=== PATIENT | male | born 1975 | race Caucasian/White ===

== ENCOUNTER → 2019-02-11 | Outpatient (CLI) | payer BC, OTHER ==
--- NOTE | 2019-02-11 11:23 | Diagnostic Imaging Report ---
PROCEDURE: CT abdomen and pelvis without contrast. TECHNIQUE: Multiple contiguous axial images were obtained through the abdomen and pelvis without the use of intravenous contrast. Auto Exposure Controls were utilized during the CT exam to meet ALARA standards for radiation dose reduction. INDICATION: Hematuria. COMPARISON: No prior studies are available for comparison. FINDINGS: Imaging through the lung bases shows a tiny nonspecific 6 mm nodule in the left lower lobe, image #1. There are two adjacent approximately 2-3 mm nodules. No infiltrates are seen. No discrete liver mass is identified. The gallbladder is unremarkable. No biliary duct dilatation is seen. The pancreas and spleen are unremarkable. No adrenal mass is detected. Right kidney is atrophic. Left kidney demonstrates compensatory enlargement. No calculi or hydronephrosis is detected. The aorta is non-aneurysmal. Small and large bowel loops are normal in caliber. Appendix is surgically absent. There is no ascites. Bladder is unremarkable. Prostate is normal in size. The bony structures are non-acute. IMPRESSION: 1. Subcentimeter left lower lobe pulmonary nodules, indeterminate. Followup in 6-12 months could be performed to confirm stability. 2. Atrophic right kidney. No urinary tract calculi or obstruction is identified. No acute feature in the abdomen or pelvis is seen. Dictated by: Dictated on workstation # [id number]
== END ==
LOC: RAD 10:23
PROVIDERS: ATTEND Urology
DX: N26.1 Atrophy of kidney (terminal) (principal); R91.8 Other nonspecific abnormal finding of lung field; R31.0 Gross hematuria; Z90.49 Acquired absence of other specified parts of digestive tract
CPT/HCPCS: 74176

== ENCOUNTER → 2019-05-19 | Outpatient (CLI) | payer BC, MEDICARE, OTHER ==
[~2019-05-19] MED LIST: HOLD METFORMIN - RECEIVED CONTRAST 20 ML VIAL IV SCH; IOHEXOL 350 MG/ML 100 ML (OMNIPAQUE 350) VIAL IV ONE; NS 100 ML (IVPB) BAG IV ONE
--- NOTE | 2019-05-19 10:58 | Diagnostic Imaging Report ---
PROCEDURE: CT chest with contrast only. TECHNIQUE: Multiple contiguous axial images were obtained through the chest after administration of intravenous contrast. Auto Exposure Controls were utilized during the CT exam to meet ALARA standards for radiation dose reduction. INDICATION: Lung nodule. COMPARISON: Correlation is made with CT abdomen and pelvis study from 02/11/2019. FINDINGS: No axillary lymphadenopathy is identified. There are non-pathologically enlarged lymph nodes in the mediastinum. Kathryn are unremarkable. No pericardial or pleural fluid is identified. Central airways are patent. Tiny nodules in the left lower lobe near the major fissure seen previously are stable. Largest nodule measures approximately 5 mm. No new mass is seen. Upper abdomen demonstrates right renal atrophy. IMPRESSION: Stable left lower lobe nodules when compared with exam three months earlier. Followup at 6 and 12 months is recommended to confirm stability. Dictated by: Dictated on workstation # [id number]
== END ==
LOC: RAD 09:15
PROVIDERS: ATTEND Urology
DX: R91.8 Other nonspecific abnormal finding of lung field (principal)
CPT/HCPCS: 71260

== ENCOUNTER → 2019-11-16 | Outpatient (CLI) | payer BC, OTHER ==
[~2019-11-16] MED LIST changes: +CATHETER FLUSH 10 ML SYR IV PRN
--- NOTE | 2019-11-16 13:11 | Diagnostic Imaging Report ---
PROCEDURE: CT chest with contrast only. TECHNIQUE: Multiple contiguous axial images were obtained through the chest after administration of intravenous contrast. Auto Exposure Controls were utilized during the CT exam to meet ALARA standards for radiation dose reduction. INDICATION: Follow-up left lower lobe nodule. Chest pain at times. COMPARISON: CT chest on 05/19/2019. FINDINGS: The heart size is within normal limits. No pericardial effusion is present. Stable appearance of mildly prominent mediastinal lymph nodes. No pathologically enlarged lymphadenopathy is seen in the chest. Stable size of the nodules in the left lower lobe adjacent to the fissure, with the largest measuring 0.5 cm. No new suspicious pulmonary nodules. There are no focal areas of consolidation. No central endobronchial obstructing lesions are identified. There is no pleural effusion or pneumothorax. The osseous structures demonstrate no acute abnormalities. Limited views of the upper abdominal structures demonstrate no acute abnormalities. Atrophy of the right kidney is again noted. Both adrenal glands are unremarkable. IMPRESSION: 1. Stable subcentimeter pulmonary nodules in the left lower lobe, the largest measuring 0.5 cm. No new suspicious pulmonary nodules. Given the stability of the nodule follow-up in [address] is recommended. Dictated by: Dictated on workstation # [id number]
== END ==
LOC: RAD 11:39
PROVIDERS: ATTEND Urology
DX: R91.8 Other nonspecific abnormal finding of lung field (principal)
CPT/HCPCS: 71260

== ENCOUNTER → 2019-12-15 | Outpatient (CLI) | payer BC | LOC: CARD 09:47 | PROVIDERS: ATTEND Internal Medicine Cardiovascular Disease | DX: I11.9 Hypertensive heart disease without heart failure (principal); R07.9 Chest pain, unspecified; R06.02 Shortness of breath; E78.5 Hyperlipidemia, unspecified | CPT/HCPCS: 93306 ==

== ENCOUNTER → 2019-12-20 | Outpatient (CLI) | payer BC ==
[~2019-12-20] VITALS: Ht 174 cm; Wt 94.0 kg
[~2019-12-20] MED LIST changes: -HOLD METFORMIN - RECEIVED CONTRAST 20 ML VIAL IV SCH; -IOHEXOL 350 MG/ML 100 ML (OMNIPAQUE 350) VIAL IV ONE; -NS 100 ML (IVPB) BAG IV ONE
--- NOTE | 2019-12-20 17:35 | STRESS TEST ---
DATE OF SERVICE: 12/20/2019 RESTING AND POST EXERCISE TECHNETIUM-99M TETROFOSMIN SPECT CT IMAGING ORDERING PHYSICIAN: Dr. Mijares. PRIMARY PHYSICIAN: Dr. Mendoza. CLINICAL DIAGNOSIS: Chest discomfort. Baseline images were carried out after injection of 10.45 mCi of technetium-99m Tetrofosmin. Subsequently, exercise was carried out on treadmill. Neto protocol was employed. The patient completed 11 minutes and 30 seconds and attained 12.1 METS of workload. Heart rate response to exercise was normal. Blood pressure response to exercise was hypertensive. After the patient had attained more than 85% of maximum predicted heart rate, 31.7 mCi of technetium-99m Tetrofosmin were injected and the exercise was continued for another minute. Exercise was stopped on account of fatigue. No significant arrhythmia was seen. The patient did not report chest discomfort. Review of images at rest and following stress does not indicate any distinct perfusion defects consistent with significant myocardial ischemia or infarction. Gated images show normal global left ventricular systolic function with normal regional wall motion. Left ventricular ejection fraction is calculated to be 67%. CONCLUSIONS: 1. No evidence of significant myocardial ischemia or infarction on this study. 2. Normal regional wall motion. 3. Normal global left ventricular systolic function with a calculated ejection fraction of 67%. Job ID: [id number] DocumentID: [id number] Dictated Date: 12/20/2019 15:19:05 Dairy Inspector Date: 12/20/2019 17:35:18 Dictated By: LIBBY MIJARES MD, MA, FACP, FACC, MTDD
== END ==
LOC: CARD 07:39
PROVIDERS: ATTEND Internal Medicine Cardiovascular Disease
DX: R07.89 Other chest pain (principal); I10 Essential (primary) hypertension; R06.02 Shortness of breath; E78.5 Hyperlipidemia, unspecified
CPT/HCPCS: 78452; 93017

== ENCOUNTER 2020-05-15 08:00 | Day surgery (SDC) | payer BC ==
[2020-05-15] VITALS (9 sets, daily range): BP systolic 110–137; BP diastolic 70–95
[~2020-05-15] VITALS: Ht 175 cm; Wt 95.0 kg
[2020-05-15 07:41] LABS: HEMOGLOBIN 16.3 G/DL (13.3-17.7); MEAN PLATELET VOLUME 9.5 FL (7.4-10.4); WHITE BLOOD COUNT 7.4 10^3/uL (4.3-11.0)
[2020-05-15 07:53] LABS: INR 0.9 (0.8-1.4); PROTHROMBIN TIME PATIENT 12.5 SEC (12.2-14.7)
[~2020-05-15 08:00] MED LIST changes: +ASPI-1238 PO; +CARV25TA PO; -CATHETER FLUSH 10 ML SYR IV PRN; +HEParin (CATH LAB) 2,000 ML IV ONE; +LIDOCAINE 1% INJ 20 ML 20 ML VIAL ONE; +NITR0.4T39 SL; +NS IV 1000 ML 1,000 ML IV SCH; +NS IV 1000 ML 1,000 ML ONE; +OMEP40CA27 PO
[2020-05-15 08:02] LABS: ALANINE AMINOTRANSFERASE 30 U/L (0-55); ALBUMIN 4.2 GM/DL (3.2-4.5); ALKALINE PHOSPHATASE 80 U/L (40-136); BILIRUBIN,TOTAL 0.4 MG/DL (0.1-1.0); BUN/CREATININE RATIO 15; CALCIUM 8.8 MG/DL (8.5-10.1); CARBON DIOXIDE 23 MMOL/L (21-32); CHLORIDE 106 MMOL/L (98-107); CHOLESTEROL 199 MG/DL (< 200); GFR ESTIMATED > 60; GLUCOSE 101 MG/DL (70-105); HDL CHOLESTEROL 32 MG/DL (40-60); POTASSIUM 4.2 MMOL/L (3.6-5.0); SODIUM 139 MMOL/L (135-145); TOTAL PROTEIN 6.9 GM/DL (6.4-8.2); TRIGLYCERIDES 402 MG/DL (<150); VLDL CHOLESTEROL 80 MG/DL (5-40)
[2020-05-15] MEDS ORDERED: fentaNYL INJECTION 100 MCG/2 ML AMP ONE (08:29)
[2020-05-15] MEDS ORDERED: MIDAZOLAM 5 MG/5 ML (VERSED) VIAL ONE (08:29)
--- NOTE | 2020-05-15 09:10 | Cardiac Procedure Note-CS/ASA ---
Pre-Procedure Note Pre-Op Procedure Note H&P Reviewed The H&P was reviewed, patient examined and no changes noted. Date H&P Reviewed: May 15, 2020 Time H&P Reviewed: 08:45 Conscious Sedation Pre-Proced Time 08:45 ASA Score 3 For ASA 3 and 4: Consider anesthesia and medical clearance. Also, for patients with a history of failed moderate sedation consider anesthesia. Airway Lungs Heart ASA score ASA 1: a normal healthy patient ASA 2: a patient with a mild systemic disease (mid diabetes, controlled hypertension, obesity ASA 3: a patient with a severe systemic disease that limits activity (angina, COPD, prior Myocardial infarction) ASA 4: a patient with an incapacitating disease that is a constant threat to life (CHF, renal failure) ASA 5: a moribund patient not expected to survive 24 hrs. (ruptured aneurysm) ASA 6: a declared brain- patient whose organs are being harvested. For emergent operations, add the letter E after the classification Mallampati Classification Grade 2 Sedation Plan Analgesia, Amnesia, Plan communicated to team members, Discussed options with patient/fam, Discussed risks with patient/fam The patient is an appropriate candidate to undergo the planned procedure, sedation, and anesthesia. The patient immediately re-assessed prior to indication. LIBBY VOSS MD FACP FAC CCDS May 15, 2020 09:10
[2020-05-15] MEDS ORDERED: NS IV 1000 ML 1,000 ML IV SCH (09:13)
[2020-05-15] MEDS ORDERED: PATIENT MAY USE OWN MEDS, ALL PO SCH (09:15)
--- NOTE | 2020-05-15 09:15 | Discharge Inst-Cardiology ---
Discharge Inst-Cardiac Discharge Medications Continued Medications: Aspirin (Aspirin EC) 81 Mg Tablet.dr 81 MG PO DAILY, TAB Carvedilol (Carvedilol) 25 Mg Tablet 25 MG PO BID, TAB Omeprazole (Omeprazole) 40 Mg Capsule.dr 40 MG PO DAILY, CAP Discontinued Medications: Nitroglycerin (Nitroglycerin) 0.4 Mg Tab.subl 0.4 MG SL UD PRN for CHEST PAIN, TAB LIBBY VOSS MD FACP FAC CCDS May 15, 2020 09:15
--- NOTE | 2020-05-15 09:16 | Discharge Inst-Post CATH ---
Discharge Inst-CATH/EP Post Cardiac Cath/EP D/C Inst Follow Up/Plan F/u with Dr Mijares in 2 weeks <b>CARDIAC CATH/EP PROCEDURE DISCHARGE INSTRUCTIONS</b> ACTIVITY * Go Home directly and rest. * Limit activity of the leg (or wrist if it was used) for 7 days including aerobics, swimming, jogging, bicycling, etc. * Restrict stair-climbing for 7 days if possible, if not, climb up with your non-cath leg, then bring together on the same step. * Avoid lifting, pushing, pulling or excessive movement of the affected extremity for 7 days. * Customary sexual activity may be resumed after 2 days-use caution not to use a position that strains or causes pain to the affected extremity. * No driving for 24 hours. * NO SMOKING. * Avoid straining for bowel movements for 7 days. * Gentle walking on level ground is allowed. * Returning to work will depend on the type of procedure and the results. Your doctor will discuss this with you. CALL YOUR DOCTOR FOR ANY OF THE FOLLOWING: *If bleeding from the puncture site occurs- Apply gentle pressure to site with clean cloth and call your doctor or EMS. * If a knot or lump forms under the skin, increases in size, or causes pain. * If bruising appears to be worsening or moving further down your leg instead of disappearing. * Temperature above 101 F. CARE OF YOUR GROIN INCISION; * Bruising or purple discoloration of the skin near the puncture site is common. * You may shower only, no bathtub bathing for 5 days. Be careful to avoid slipping as your leg may feel stiff. * If a closure device was used on your femoral artery, please see the attached guide regarding care of the device and your leg. * Leave dressing on FOR 24 hours. CARE OF YOUR WRIST INCISION; * Bruising or purple discoloration of the skin near the puncture site is common. * You may shower. * DO NOT submerge wrist. * Leave dressing on FOR 24 hours. LIBBY MIJARES MD FACP FAC CCDS May 15, 2020 09:16
--- NOTE | 2020-05-15 11:43 | CARDIAC CATHETERIZATION ---
DATE OF SERVICE: 05/15/2020 CARDIAC CATHETERIZATION REPORT The patient is a 44-year-old man with multiple coronary artery disease risk factors who has been experiencing chest discomfort consistent with new onset of angina pectoris. Cardiac catheterization was carried out today after having obtained an informed consent. DESCRIPTION OF PROCEDURE: He was brought to the cardiac catheterization laboratory in a fasting state. Right groin was prepared and draped in the usual sterile fashion. A 1% lidocaine was used as local anesthesia. Modified Seldinger technique was used to advance a 5-Bahamian sheath into the right femoral artery. A 5-Bahamian JL4 catheter was used for left coronary angiography, 5-Bahamian JR4 catheter was used for right coronary angiography, 5-Bahamian pigtail catheter was used for left heart catheterization and left ventricular angiography. Pigtail catheter was then pulled back and removed. Angiography of the right femoral artery was carried out through the sheath. Mynx was used to achieve hemostasis. He tolerated the procedure well. HEMODYNAMICS: Left ventricular end-diastolic pressure following coronary angiography was 13 mmHg. There was no significant pressure gradient on pullback across the aortic valve. Ascending aortic pressure was 112/75 with a mean of 81 mmHg. CORONARY ANGIOGRAPHY: Left main coronary artery, left anterior descending artery, left circumflex artery, right coronary artery did not exhibit any angiographically significant coronary artery disease. Right coronary artery was dominant. LEFT VENTRICULAR ANGIOGRAPHY: Left ventricular angiography was carried out in the right anterior oblique projection. Global left ventricular systolic function is normal. Left ventricular ejection fraction approximately 60%. No regional wall motion abnormalities are seen in this view. CONCLUSIONS: 1. No angiographically significant coronary artery disease. 2. Normal global left ventricular systolic function with ejection fraction approximately 60%. 3. Left ventricular end-diastolic pressure is at the top limit of normal. DISCUSSION AND RECOMMENDATIONS: Based on results of the study, it appears appropriate to continue a conservative approach. Risk factor modification has been reviewed. Outpatient followup is advised. Job ID: [id number] DocumentID: [id number] Dictated Date: 05/15/2020 09:20:18 Customs Director Date: 05/15/2020 11:43:18 Dictated By: LIBBY VOSS MD, MA, FACP, FACC,
== END 2020-05-15 12:25 | disposition home or self-care (01) ==
LOC: CATH 08:00 → SDC 09:34 → CATH 12:25
PROVIDERS: ATTEND Internal Medicine Cardiovascular Disease
DX: R07.89 Other chest pain (principal); I10 Essential (primary) hypertension; E78.5 Hyperlipidemia, unspecified; R91.1 Solitary pulmonary nodule; N26.1 Atrophy of kidney (terminal); F17.220 Nicotine dependence, chewing tobacco, uncomplicated; E66.9 Obesity, unspecified; Z68.31 Body mass index [BMI] 31.0-31.9, adult; Z79.82 Long term (current) use of aspirin; Z79.899 Other long term (current) drug therapy; Z83.3 Family history of diabetes mellitus
CPT/HCPCS: 80053; 80061; 85027; 85610; 85730; 87081; 93458; C1760; C1894; 36415

== ENCOUNTER → 2020-05-21 | Outpatient (CLI) | payer BC ==
[~2020-05-21] MED LIST changes: -HEParin (CATH LAB) 2,000 ML IV ONE; -LIDOCAINE 1% INJ 20 ML 20 ML VIAL ONE; -NS IV 1000 ML 1,000 ML IV SCH; -NS IV 1000 ML 1,000 ML ONE
--- NOTE | 2020-05-21 08:43 | Diagnostic Imaging Report ---
PROCEDURE: US Gallbladder. TECHNIQUE: Multiple real-time grayscale images were obtained over the right upper quadrant in various projections. INDICATION: Right upper quadrant abdominal pain. COMPARISON: CT abdomen and pelvis performed on 02/11/2019. FINDINGS: Examination is technically limited secondary to overlying bowel gas. Liver: Normal in size and echotexture. No focal lesion is seen. Appropriate hepatopetal flow is demonstrated in the main portal vein. Gallbladder: Normal. No stones or gallbladder wall thickening. No pericholecystic fluid. Negative sonographic Barros's sign. Biliary Tree: No intrahepatic or extrahepatic bile duct dilation is identified. Proximal common duct measures 0.3 cm in diameter. Pancreas: Obscured by overlying bowel gas. Right kidney: Right kidney is not well seen due to overlying bowel gas. Renal length measures approximately 9.0 cm. There is no hydronephrosis or other acute abnormality appreciated. Other: The aorta is not well seen due to overlying bowel gas. The IVC is normal in caliber and contour. No abdominal free fluid is demonstrated. IMPRESSION: Unremarkable abdominal ultrasound. Evaluation is slightly limited secondary to overlying bowel gas, with nonvisualization of the pancreas. Please see above for details. Dictated by: Dictated on workstation # [id number]
== END ==
LOC: RAD 08:00
PROVIDERS: ATTEND Surgery
DX: R10.11 Right upper quadrant pain (principal)
CPT/HCPCS: 76705

== ENCOUNTER → 2020-05-24 | Outpatient (CLI) | payer BC ==
[~2020-05-24] MED LIST changes: +CATHETER FLUSH 10 ML SYR IV PRN
--- NOTE | 2020-05-24 08:55 | Diagnostic Imaging Report ---
Indication: Right upper quadrant abdominal pain Hepatobiliary scan 5.5 mCi of technetium 99m Choletec was given to previously. Cannot ensure was drained 45 minutes into the study. There is homogeneous uptake of isotope throughout the liver. The cystic duct and common duct are both patent. The gallbladder ejection fraction was calculated at 68%. IMPRESSION: Normal hepatobiliary scan Dictated by: Dictated on workstation # [id number]
== END ==
LOC: CARD 10:00
PROVIDERS: ATTEND Surgery
DX: R10.11 Right upper quadrant pain (principal)
CPT/HCPCS: 78227; A9537

== ENCOUNTER → 2020-06-12 | Outpatient (CLI) | payer BC ==
[~2020-06-12] MED LIST changes: -CATHETER FLUSH 10 ML SYR IV PRN; +HOLD METFORMIN - RECEIVED CONTRAST 20 ML VIAL IV SCH; +IOHEXOL 350 MG/ML 100 ML (OMNIPAQUE 350) VIAL IV ONE; +NS 100 ML (IVPB) BAG IV ONE
--- NOTE | 2020-06-12 09:10 | Diagnostic Imaging Report ---
PROCEDURE: CT chest with contrast only. TECHNIQUE: Multiple contiguous axial images were obtained through the chest after administration of intravenous contrast. Auto Exposure Controls were utilized during the CT exam to meet ALARA standards for radiation dose reduction. INDICATION: Lung nodule. FINDINGS: The previous CT abdomen/pelvis exam of 02/19/2019 noted two small pepe-fissural nodules in the left lung base. Those findings appeared stable on the subsequent CT chest exam of 05/19/2019 and 11/16/2019. On this study, those nodules are again evident and no different. I do suspect that they are benign. There is also a 4.7 mm nodule in the right lung base (image 68 of 140). This finding is unchanged when compared to the prior exam as well. There are also two even smaller nodules in the right middle lobe at this same level. These are stable also. The overall appearance the chest is otherwise unremarkable. There is no sign of failure, pneumonia, or pleural effusion to indicate an acute abnormality. The heart is stable in size. There are no obvious coronary artery calcifications. The aorta is not abnormally dilated and there is no sign of a dissection. There is no defect within the pulmonary arteries to indicate a pulmonary embolus. The small mediastinal and aorticopulmonary window nodes noted on the prior study are again evident and unchanged. The thyroid gland seems similar to the previous study. The sections through the upper abdomen fail to show any sign of an acute abnormality. The osseous structures are intact. IMPRESSION: 1. The small pulmonary nodules seen previously are again evident and appear stable. Most likely, they are benign. A short-term (6-12 month) followup CT chest exam would be recommended to establish a 2 year stability of these nodules. If these nodules seem stable on the followup exam, then no additional surveillance imaging would be necessary. 2. There is no acute cardiopulmonary abnormality appreciated. Dictated by: Dictated on workstation # [id number]
== END ==
LOC: RAD 08:15
PROVIDERS: ATTEND Urology
DX: R91.8 Other nonspecific abnormal finding of lung field (principal)
CPT/HCPCS: 71260

== ENCOUNTER → 2020-12-28 | Outpatient (CLI) | payer BC ==
[~2020-12-28] MED LIST changes: +CATHETER FLUSH 10 ML SYR IV PRN
--- NOTE | 2020-12-28 08:30 | Diagnostic Imaging Report ---
EXAMINATION: CT chest with intravenous contrast. TECHNIQUE: Multiple contiguous axial images were obtained through the chest after the uneventful administration of intravenous contrast. All CT scans use one or more of the following dose optimizing techniques: automated exposure control, MA and/or KvP adjustment based on patient size and exam type or iterative reconstruction. HISTORY: Six-month follow-up for left lower lobe nodule. COMPARISON: CT chest on 06/12/2020. FINDINGS: The heart size is within normal limits. No pericardial effusion is present. Stable mildly prominent mediastinal lymph nodes. No evidence of pathologically enlarged lymphadenopathy in the chest. Stable nodule is noted in the right lower lobe along the fissure measuring 0.5 cm. Stable nodules are seen along the fissure on the left within the left lower lobe with the largest measuring 0.5 cm. No new suspicious pulmonary nodules. No evidence of pulmonary mass. There are no focal areas of consolidation. No central endobronchial obstructing lesions are identified. There is no pleural effusion or pneumothorax. The osseous structures demonstrate no acute abnormalities. Limited views of the upper abdominal structures demonstrate no acute abnormalities. Both adrenal glands are unremarkable. IMPRESSION: 1. Stable subcentimeter pulmonary nodules in the bilateral lower lobes measuring up to 0.5 cm in size. Given the stability these are favored to represent benign etiology. If the patient is high risk for developing lung malignancy consider follow-up chest CT in 12 months. Otherwise, no further follow-up is recommended regarding these lesions. Dictated by: Dictated on workstation # [id number]
== END ==
LOC: RAD 07:34
PROVIDERS: ATTEND Urology
DX: R91.8 Other nonspecific abnormal finding of lung field (principal)
CPT/HCPCS: 71260

== ENCOUNTER 2021-06-19 12:21 | Day surgery (SDC) | payer OTHER ==
[2021-06-19] VITALS (14 sets, daily range): BP systolic 127–151; BP diastolic 72–101
[~2021-06-19] VITALS: Ht 175.3 cm; Wt 80.0 kg
[~2021-06-19 12:21] MED LIST changes: -CATHETER FLUSH 10 ML SYR IV PRN; -HOLD METFORMIN - RECEIVED CONTRAST 20 ML VIAL IV SCH; -IOHEXOL 350 MG/ML 100 ML (OMNIPAQUE 350) VIAL IV ONE; -NS 100 ML (IVPB) BAG IV ONE; -OMEP40CA27 PO; +OMEP40CA6 PO
[2021-06-19] MEDS ORDERED: NS IV 500 ML 500 ML ONE (12:31)
[2021-06-19] MEDS ORDERED: METH10TA3 PO (12:53)
[2021-06-19] MEDS ORDERED: LIDOCAINE JELLY 2% 6 ML SYRINGE MM PRN (13:00)
[2021-06-19] MEDS ORDERED: fentaNYL INJ 100 MCG/2 ML AMP IVP ONE (13:00)
[2021-06-19] MEDS ORDERED: HURRICAINE EXT TUBE (BENZOCAINE) XX PRN (13:00)
[2021-06-19] MEDS ORDERED: MIDAZOLAM 5 MG/5 ML (VERSED) VIAL IV ONE (13:00)
[2021-06-19] MEDS ORDERED: NS IV 500 ML 500 ML IV PRN (13:00)
--- NOTE | 2021-06-19 13:30 | Conscious Sedation/ASA ---
Conscious Sedation Pre-Proced Time 13:00 ASA Score 2 For ASA 3 and 4: Consider anesthesia and medical clearance. Also, for patients with a history of failed moderate sedation consider anesthesia. Airway Lungs Heart ASA score ASA 1: a normal healthy patient ASA 2: a patient with a mild systemic disease (mid diabetes, controlled hypertension, obesity ASA 3: a patient with a severe systemic disease that limits activity (angina, COPD, prior Myocardial infarction) ASA 4: a patient with an incapacitating disease that is a constant threat to life (CHF, renal failure) ASA 5: a moribund patient not expected to survive 24 hrs. (ruptured aneurysm) ASA 6: a declared brain- patient whose organs are being harvested. For emergent operations, add the letter E after the classification Mallampati Classification Grade 2 Sedation Plan Analgesia, Amnesia, Plan communicated to team members, Discussed options with patient/fam, Discussed risks with patient/fam The patient is an appropriate candidate to undergo the planned procedure, sedation, and anesthesia. The patient immediately re-assessed prior to indication. SETH MCFARLAND MD Jun 19, 2021 13:30
--- NOTE | 2021-06-19 13:31 | Progress Note-Pre Operative ---
Pre-Operative Progress Note H&P Reviewed The H&P was reviewed, patient examined and no changes noted. Date Seen by Provider: Jun 19, 2021 Time Seen by Provider: 13:00 Date H&P Reviewed: Jun 19, 2021 Time H&P Reviewed: 13:00 Pre-Operative Diagnosis: rectal bleed. SETH MCFARLAND MD Jun 19, 2021 13:31
--- NOTE | 2021-06-19 13:32 | Discharge Inst-Surgical ---
D/C Lap Instructions-BARTOLO Follow Up Activity as tolerated High Fiber Diet 25g or more per day Avoid Alcohol, Caffeine, Spicy [place] and Acid foods. Drink 64 fluid oz or more of fluids per day. Symptoms to Report: Fever over 101 degree F, Nausea/Vomiting If any problems/questions: Contact your physician or go to Emergency Room SETH MCFARLAND MD Jun 19, 2021 13:32
[2021-06-19] MEDS ORDERED: ONDANSETRON 4 MG (ZOFRAN) ORAL DISSOLVE TAB PO PRN (13:45)
[2021-06-19] MEDS ORDERED: ONDANSETRON 4 MG/2 ML (SDV) Z0FRAN IVP PRN (13:45)
[2021-06-19 14:20] LABS: BASOPHILS % (AUTO) 0 % (0-10); EOSINOPHILS # (AUTO) 0.1 10^3/uL (0.0-0.3); EOSINOPHILS % (AUTO) 1 % (0-10); HEMATOCRIT 44 % (40-54); HEMOGLOBIN 15.1 g/dL (13.3-17.7); LYMPHOCYTES # (AUTO) 2.2 X 10^3 (1.0-4.0); LYMPHOCYTES % (AUTO) 31 % (12-44); MEAN CORPUSCULAR HEMOGLOBIN 32 pg (25-34); MEAN CORPUSCULAR HGB CONC 34 g/dL (32-36); MEAN CORPUSCULAR VOLUME 92 fL (80-99); MEAN PLATELET VOLUME 9.3 fL (9.0-12.2); MONOCYTES # (AUTO) 0.6 X 10^3 (0.0-1.0); MONOCYTES % (AUTO) 8 % (0-12); NEUTROPHILS # (AUTO) 4.2 X 10^3 (1.8-7.8); NEUTROPHILS % (AUTO) 59 % (42-75); PLATELET COUNT 317 10^3/uL (130-400); WHITE BLOOD COUNT 7.2 10^3/uL (4.3-11.0)
[2021-06-19 14:29] LABS: ALBUMIN 4.1 GM/DL (3.2-4.5); POTASSIUM 4.3 MMOL/L (3.6-5.0)
[2021-06-19 14:31] LABS: CALCIUM 9.3 MG/DL (8.5-10.1)
[2021-06-19 14:32] LABS: TOTAL PROTEIN 6.5 GM/DL (6.4-8.2)
[2021-06-19 14:34] LABS: BILIRUBIN,TOTAL 0.6 MG/DL (0.1-1.0)
--- NOTE | 2021-06-19 15:27 | Progress Note-Post Operative ---
Post-Operative Progess Note Surgeon (s)/Timber Management Professor (s) Surgeon SETH MCFARLAND MD Timber Management Professor: none Pre-Operative Diagnosis rectal bleed. Post-Operative Diagnosis chronic stage 2 ext and int hemorrhoids, mild proctitis and sigmoid colitis. no active bleed. Procedure & Operative Findings Date of Procedure 06/19/21 Procedure Performed/Findings colonoscopy with bx. Anesthesia Type cs Estimated Blood Loss Estimated blood loss (mL): minimal Specimens/Packing Specimens Removed sigmoid colon SETH MCFARLAND MD Jun 19, 2021 15:27
--- NOTE | 2021-06-19 23:21 | OPERATIVE REPORT ---
DATE OF SERVICE: 06/19/2021 ATTENDING PRIMARY CARE PHYSICIAN: Konstantin Mendoza DO PREOPERATIVE DIAGNOSIS: Rectal bleeding. POSTOPERATIVE DIAGNOSES: Mild proctitis and colitis of the sigmoid colon, no active bleeding. PROCEDURE: Colonoscopy with biopsy. SURGEON: Seth Mcfarland MD. ANESTHESIA: Conscious sedation. ESTIMATED BLOOD LOSS: Minimal. FINDINGS: Mild proctitis and colitis of the sigmoid colon, no active bleeding. DISPOSITION: The patient tolerated the procedure well. INDICATIONS: The patient is a 46-year-old male, who has had issues with intermittent rectal bleeding for the past six months and states that he noticed a small amount of bleeding in the morning and then at times throughout the day, he will notice passing clots. He states that sometimes this is significant during a bowel movement as well. He does not report any symptoms of gastroesophageal reflux disease nor peptic ulcer disease. He has not had a colonoscopy up to this point in his life. DESCRIPTION OF PROCEDURE: The patient was brought to the endoscopy suite, laid in the left lateral decubitus position. After adequate IV pain and sedative medications and conscious sedation anesthesia, digital rectal examination was performed. Chronic stage II external and internal hemorrhoids were identified, which were not actively edematous nor inflamed and no bleeding. Normal sphincter tone was felt and there were no palpable masses. Prostate gland was palpable and appeared normal. The endoscope was then intubated and anus and rectum gently insufflated. The endoscope was then advanced through the valves of Mehta of the rectum, a very mild what appeared to be chronic proctitis was identified and this did extend into the sigmoid colon. Biopsies were taken of the sigmoid colon with forceps with visualization of good hemostasis. No active bleeding identified. There was no diverticulosis identified. The endoscope was then advanced to the remainder of the descending, transverse and ascending colon to the cecum, which appeared normal. The endoscope was then slowly withdrawn while taking a second look and suctioning of residual air with no additional findings. The patient tolerated the procedure well. We feel that he does have this low level form of colitis, which may indicate some level of undiagnosed inflammatory bowel disease that occurred on an intermittent basis. At this time, there is very minimal inflammation and there is no bleeding and if he does have recurrent episodes of bleeding, we will start him on the first line therapy for chronic active inflammatory bowel disease, which would encompass 5 amino salicylic acid. We would also refer him to gastroenterology for further management. Job ID: [id number] DocumentID: [id number] Dictated Date: 06/19/2021 15:19:43 Emt Paramedic Date: 06/19/2021 23:20:42 Dictated By: SETH MCFARLAND MD
== END 2021-06-19 15:50 | disposition home or self-care (01) ==
LOC: ENDO 12:21
PROVIDERS: ATTEND Surgery
DX: K62.89 Other specified diseases of anus and rectum (principal); K52.9 Noninfective gastroenteritis and colitis, unspecified; K64.1 Second degree hemorrhoids; I10 Essential (primary) hypertension; E78.00 Pure hypercholesterolemia, unspecified; K21.9 Gastro-esophageal reflux disease without esophagitis; Z80.1 Family history of malignant neoplasm of trachea, bronchus and lung; Z80.0 Family history of malignant neoplasm of digestive organs; Z79.899 Other long term (current) drug therapy
CPT/HCPCS: 36415; 80053; 85025

== ENCOUNTER → 2021-10-07 | Outpatient (CLI) | payer OTHER ==
[~2021-10-07] MED LIST changes: +HOLD METFORMIN - RECEIVED CONTRAST 20 ML VIAL IV SCH; +IOHEXOL 350 MG/ML 100 ML (OMNIPAQUE 350) VIAL IV ONE; +METH10TA3 PO; +NS 100 ML (IVPB) BAG IV ONE
--- NOTE | 2021-10-07 18:04 | Diagnostic Imaging Report ---
EXAMINATION: CT chest with intravenous contrast. TECHNIQUE: Multiple contiguous axial images were obtained through the chest after the uneventful administration of intravenous contrast. All CT scans use one or more of the following dose optimizing techniques: automated exposure control, MA and/or KvP adjustment based on patient size and exam type or iterative reconstruction. HISTORY: Lung nodule COMPARISON: 12/28/2020 FINDINGS: There is no edema or pneumonia. No pleural effusion. No pneumothorax. There is stable 5 mm and smaller bilateral pulmonary nodules. There is no axillary or supraclavicular lymphadenopathy. There is no mediastinal lymphadenopathy. Heart size is normal. There are no coronary artery calcifications. No pericardial effusion. Aorta is normal in caliber. Limited views of the upper abdomen are unremarkable. There are no suspicious osseus lesions. IMPRESSION: 1. Stable pulmonary nodules consistent with a benign etiology. Dictated by: Dictated on workstation # [id number]
== END ==
LOC: RAD 17:12
PROVIDERS: ATTEND Urology
DX: R91.1 Solitary pulmonary nodule (principal)
CPT/HCPCS: 71260

== ENCOUNTER → 2022-04-29 | Outpatient (CLI) | payer OTHER ==
[~2022-04-29] MED LIST changes: -HOLD METFORMIN - RECEIVED CONTRAST 20 ML VIAL IV SCH; -IOHEXOL 350 MG/ML 100 ML (OMNIPAQUE 350) VIAL IV ONE; -NS 100 ML (IVPB) BAG IV ONE
== END ==
LOC: CARD 15:07
PROVIDERS: ATTEND Nurse Practitioner Family
DX: R07.89 Other chest pain (principal)
CPT/HCPCS: 93306

== ENCOUNTER → 2022-05-02 | Outpatient (CLI) | payer OTHER ==
[~2022-05-02] MED LIST changes: +CATHETER FLUSH 10 ML SYR IVP PRN
[2022-05-02 08:57] VITALS: BP 160/87
--- NOTE | 2022-05-06 15:04 | STRESS TEST ---
DATE OF SERVICE: 05/02/2022 RESTING AND POST EXERCISE TECHNETIUM-99M TETROFOSMIN SPECT CT IMAGING ORDERING PHYSICIAN: Francie Casanova APRN PRIMARY PHYSICIAN: Dr. Mendoza. OTHER PHYSICIAN: Dr. Voss. CLINICAL DIAGNOSIS: Chest discomfort. Baseline images were carried out after injection of 10.87 mCi of technetium-99m Tetrofosmin. This was followed by exercise on a treadmill. Neto protocol was employed. He exercised for 10 minutes and 45 seconds. Exercise was stopped on account of fatigue. After he had attained more than 85% of maximum predicted heart rate, 32.2 mCi of technetium-99m Tetrofosmin were injected, and the exercise was continued for approximately another minute. There was incomplete right bundle branch block at baseline. No significant ST segment deviation was seen with exercise. He tolerated the procedure well. Review of images at rest and following stress does not indicate any significant perfusion defects consistent with myocardial ischemia or infarction. Gated images show normal global left ventricular systolic function with normal regional wall motion. Left ventricular ejection fraction is calculated to be 69%. During exercise, blood pressure was noted to be considerably elevated. CONCLUSIONS: 1. No evidence of any significant myocardial ischemia or infarction on this study. 2. Normal regional wall motion. 3. Normal global left ventricular systolic function with a calculated ejection fraction of 69%. 4. Somewhat hypertensive response to exercise. Job ID: [id number] DocumentID: [id number] Dictated Date: 05/06/2022 13:54:26 Legal Coordinator Date: 05/06/2022 15:04:10 Dictated By: LIBBY VOSS MD, MA, FACP, FACC,
== END ==
LOC: CARD 07:28
PROVIDERS: ATTEND Nurse Practitioner Family
DX: R07.89 Other chest pain (principal)
CPT/HCPCS: 78452; 93017; A9502